=== PATIENT | male | born 1990 | race Caucasian/White ===

== ENCOUNTER 2017-07-27 19:44 | Emergency (ER) | payer MEDICAID ==
[~2017-07-27] VITALS: Ht 167.6 cm; Wt 73.0 kg
[2017-07-27] MEDS ORDERED: ACETAMINOPHEN 500MG TABLET PO ONE (22:15)
[2017-07-27] MEDS ORDERED: ONDANSETRON HCL 4MG/2ML VIAL IV STA (22:52)
[2017-07-27] MEDS ORDERED: SODIUM CHLORIDE 0.9% 1,000 ML IV ONE (22:52)
[2017-07-27 23:21] LABS: BASOPHILS % 0.3 % (0.0-2.0); HEMATOCRIT. 42.6 % (42.0-52.0); HEMOGLOBIN. 15.1 g/dL (14.0-18.0); LYMPHOCYTES % 4.9 % (20.0-50.0); MEAN CORPUSCULAR HEMOGLOBIN 30.5 pg (28.0-32.0); MEAN PLATELET VOLUME 8.7 fl (7.4-10.4); MONOCYTES % 7.4 % (2.0-8.0); NEUTROPHILS % 87.4 % (40.0-76.0); PLATELET 186 x1000/uL (130-400); RED BLOOD CELL COUNT 4.96 mill/uL (4.7-6.1); RED CELL DISTRIBUTION WIDTH 12.1 % (11.6-14.6)
[2017-07-27 23:28] LABS: INR 1.1
[2017-07-27 23:35] LABS: CHLORIDE 103 mEq/L (98-107)
[2017-07-28 00:21] LABS: CLARITY URINE CLEAR (CLEAR); COLOR URINE YELLOW (YELLOW); KETONES URINE 1+ (NEGATIVE); LEUKOCYTE ESTERASE URINE NEGATIVE (NEGATIVE); NITRITE URINE NEGATIVE (NEGATIVE); OCCULT BLOOD URINE NEGATIVE (NEGATIVE); PROTEIN URINE NEGATIVE (NEGATIVE); SPECIFIC GRAVITY URINE 1.031 (1.005-1.030); UROBILINOGEN URINE 0.2 E.U./dL (0.2-1.0)
[2017-07-28 00:55] VITALS: BP 118/68
== END 2017-07-28 01:18 | disposition home or self-care (01) ==
LOC: ER 20:59
DX: J11.1 Influenza due to unidentified influenza virus with other respiratory manifestations (principal); R79.1 Abnormal coagulation profile
CPT/HCPCS: 36415; 71045; 80053; 81003; 83690; 85025; 85610; 87804; 96361; 96374; 99285; J2405; J7030; Z7610